=== PATIENT | male | born 1990 | race Caucasian/White ===

== ENCOUNTER 2017-09-10 09:19 | Emergency (ER) | payer SELFPAY ==
[~2017-09-10] VITALS: Ht 162.6 cm; Wt 49.9 kg
[2017-09-10 09:22] VITALS: BP 78/39
--- NOTE | 2017-09-10 09:28 | NUR ---
Patient to bed 05.
--- NOTE | 2017-09-10 09:30 | NUR ---
27M BIB FAMILY C/O GENERALIZED WEAKNESS AFTER WAKING UP THIS MORNING; PT STATES HAS BEEN HAVING DIZZINESS AND WEAKNESS X 2 DAYS; PT C/O RT ANTERIOR HEADACHE X THIS MORNING, NON-RADIATING, THROBBING, 4/10 AT THIS TIME; PT AA&OX4, PERRLA, STATES HAD BLURRY VISION EARLIER THIS MORNING, BUT STATES " IT'S BETTER NOW. I CAN SEE"; PT STATES NO TRAUMA OR INJURY TO HEAD AT THIS TIME; PT C/O DIARRHEA X 2 DAYS, WITH 1 EPISODE OF DIARRHEA TODAY, BUT STATES NO NAUSEA OR VOMITING AT THIS TIME; ABDOMEN SOFT, NON-TENDER, ACTIVE BOWEL SOUNDS X 4 QUADRANTS; SKIN IS WARM/DRY/PALE AT THIS TIME; STEADY GAIT; PT RESTING IN BED WITH HOB ELEVATED AND IN LOWEST POSITION; POSITIONED FOR COMFORT; ER MD MADE AWARE OF STATUS. WILL CONTINUE TO MONITOR.
--- NOTE | 2017-09-10 09:34 | NUR ---
ER MD DR. TAPIA EVALUATING PT AT BEDSIDE.
[2017-09-10] MEDS ORDERED: NACL 0.9% 1,000 ML IV ONE (09:35)
[2017-09-10 09:56] LABS: HEMATOCRIT 41.9 % (36-52); HEMOGLOBIN 14.1 g/dL (12.0-18.0); MEAN CORPUSCULAR HEMOGLOBIN 29 pg (27-31); MEAN CORPUSCULAR HGB CONC 34 g/dL (33-37); MEAN CORPUSCULAR VOLUME 87 fL (80-94); PLATELET COUNT (AUTO) 271 K/uL (140-450); RED BLOOD CELL COUNT(AUTO) 4.82 MIL/uL (4.20-6.10); RED CELL DISTRIBUTION WIDTH 11.7 % (11.6-13.7); WHITE BLOOD COUNT (AUTO) 6.1 K/uL (4.8-10.8)
[2017-09-10 10:06] LABS: ANION GAP 11.4 (8-16); CARBON DIOXIDE 31.9 mmol/L (21-32); CREATININE 0.6 mg/dL (0.7-1.3); POTASSIUM 4.3 mmol/L (3.5-5.1)
--- NOTE | 2017-09-10 10:30 | NUR ---
PT APPEARS TO BE RESTING COMFORTABLY IN BED; VSS; RR EVEN/UNLABORED; POSITIONED FOR COMFORT; WILL CONTINUE TO MONITOR.
--- NOTE | 2017-09-10 11:20 | NUR ---
IV removed, catheter intact and site benign. Applied folded 4x4 gauze and tape to stop bleeding. PT TOLERATED PROCEDURE WELL.
[2017-09-10 11:23] VITALS: BP 103/61
--- NOTE | 2017-09-10 11:23 | NUR ---
Patient discharged with v/s stable. Written and verbal after care instructions given and explained. Patient verbalized understanding. Ambulatory with steady gait. All questions addressed prior to discharge. Advised to follow up with PMD.
[2017-09-10 11:48] LABS: EOSINOPHILS % (MANUAL) 6 % (0-4); LYMPHOCYTES % (MANUAL) 39 % (20-46); MONOCYTES % (MANUAL) 9 % (5-12)
== END 2017-09-10 11:23 | disposition home or self-care (01) ==
LOC: MED 09:19
DX: R53.1 Weakness (principal); R51 Headache; R19.7 Diarrhea, unspecified; E11.9 Type 2 diabetes mellitus without complications
CPT/HCPCS: 36415; 80048; 85025; 96360; 99284; J7030